=== PATIENT | male | born 1985 | race Caucasian/White ===

== ENCOUNTER 2018-12-07 04:31 | Emergency (ER) | payer MEDICAID, OTHER ==
[~2018-12-07] VITALS: Ht 170.2 cm; Wt 74.5 kg
[2018-12-07] MEDS ORDERED: ALBUTEROL SULFATE 2.5 MG/0.5 ML NEB SOLUTION NEB ONE (05:00)
[2018-12-07] MEDS ORDERED: IPRATROPIUM BROMIDE 0.5 MG/2.5 ML NEB SOLUTION NEB ONE (05:00)
[2018-12-07] MEDS ORDERED: ALBU0.212 IH (05:03)
[2018-12-07] MEDS ORDERED: PredniSONE 20 MG TABLET PO ONE (05:30)
[2018-12-07] MEDS ORDERED: ALBUTEROL SULFATE HFA 90 MCG/PUFF 8 GM INHALER IH ONE (05:30)
[2018-12-07 05:59] VITALS: BP 133/84
== END 2018-12-07 06:00 | disposition home or self-care (01) ==
LOC: EMS 04:37
DX: J45.909 Unspecified asthma, uncomplicated (principal); Z91.013 Allergy to seafood
CPT/HCPCS: 71045; 94640; 99284; J7512; J3535